=== PATIENT | female | born 1980 | race Native Hawaiian/Other Pacific Islander ===

== ENCOUNTER 2018-07-11 14:07 | Emergency (ER) | payer SELFPAY ==
[2018-07-11 15:20] LABS: Basophils % (Auto) 0.3 % (0.0-1.8); Eosinophils # (Auto) 0.3 K/mm3 (0.0-0.4); Eosinophils % (Auto) 2.5 % (0.0-4.3); Hematocrit 42.2 % (30.3-42.9); Hemoglobin 13.9 gm/dl (10.1-14.3); Lymphocytes # (Auto) 1.9 K/mm3 (1.2-5.4); Lymphocytes % (Auto) 17.9 % (13.4-35.0); Mean Corpuscular HGB Conc 33 % (30-34); Mean Corpuscular Hemoglobin 29 pg (28-32); Mean Corpuscular Volume 88 fl (79-97); Monocytes # (Auto) 0.7 K/mm3 (0.0-0.8); Monocytes % (Auto) 6.6 % (0.0-7.3); Platelet Count 315 K/mm3 (140-440); Red Blood Count 4.82 M/mm3 (3.65-5.03); Red Cell Distribution Width 14.5 % (13.2-15.2)
--- NOTE | 2018-07-11 16:11 | Emergency Department Report ---
HPI - General Chief Complaint: Vaginal Bleeding Time Seen by Provider: 07/11/18 16:03 - [facility] HPI: Room 5 The patient is a 37-year-old female presenting with a chief complaint of vaginal bleeding. The patient states she is approximately 6 weeks and yesterday began developing vaginal bleeding. Patient states she went through approximately 2 pads in one day however her bleeding had increased in the waiting room. The patient states today she developed intermittent lower abdominal cramping. Patient denies any history of fever. Location: Lower abdomen, pelvis Duration: Since yesterday Quality: Cramping Severity: Moderate Modifying factors: [see above] Context: [see above] Mode of transportation: [not driving] ED Past Medical Hx - Past Medical History Previous Medical History?: No - Surgical History Past Surgical History?: No Additional Surgical History: c sect x 2 - Family History Family history: no significant - Social History Smoking Status: Never Smoker Substance Use Type: None - Medications Home Medications: Home Medications Medication Instructions Recorded Confirmed Last Taken Type Ibuprofen [Motrin] 800 mg PO Q8HR PRN #30 tablet 07/11/18 Unknown Rx oxyCODONE /ACETAMINOPHEN [Percocet 1 tab PO Q6HR PRN #15 tablet 07/11/18 Unknown Rx 5/325] ED Review of Systems ROS: Stated complaint: BLEEDING 5 WEEKS/PAIN Other details as noted in HPI Constitutional: denies: fever Eyes: denies: eye pain ENT: denies: throat pain Respiratory: no symptoms reported Cardiovascular: denies: chest pain Endocrine: no symptoms reported Gastrointestinal: abdominal pain Genitourinary: abnormal menses Musculoskeletal: denies: back pain Neurological: denies: headache Physical Exam - Physical Exam Vital Signs: Vital Signs 07/11/18 14:30 Temperature 98.5 F Pulse Rate 81 Respiratory 18 Rate Blood Pressure 116/85 O2 Sat by Pulse 99 Oximetry Physical Exam: GENERAL: The patient is well-developed well-nourished female lying on stretcher not appearing to be in acute distress. [] HEENT: Normocephalic. Atraumatic. Extraocular motions are intact. Patient has moist mucous membranes. NECK: Supple. Trachea midline CHEST/LUNGS: Clear to auscultation. There is no respiratory distress noted. HEART/CARDIOVASCULAR: Regular. There is no tachycardia. There is no gallop rub or murmur. ABDOMEN: Abdomen is soft, with mild discomfort to palpation right lower quadrant. There is no rebound or guarding. Patient has normal bowel sounds. There is no abdominal distention. SKIN: There is no rash. There is no edema. There is no diaphoresis. NEURO: The patient is awake, alert, and oriented. The patient is cooperative. The patient has normal speech MUSCULOSKELETAL: There is no evidence of acute injury. PELVIC: Tissue visualized in the vaginal vault. Moderate amount of dark red blood present ED Course Vital Signs 07/11/18 14:30 Temperature 98.5 F Pulse Rate 81 Respiratory 18 Rate Blood Pressure 116/85 O2 Sat by Pulse 99 Oximetry - Consultations Consultation #1: 07/11/18 18:58 [employer] paged 07/11/18 19:[address] Hollis- will evaluate in the ED 07/11/18 20:[address] Hollis and has Cytotec ordered in the ED. Dr. Hollis is giving the patient prescriptions for Percocet and ibuprofen ED Medical Decision Making - Lab Data Result diagrams: 07/11/18 14:47 - Radiology Data Radiology results: report reviewed (pelvic ultrasound), image reviewed (pelvic ultrasound) Findings [facility] [address] [place] [address] Ultrasound Report Signed Patient: SHERYL MASTERS MR#: [id number] : Acct:[id number] Age/Sex: 37 / F ADM Date: 07/11/18 Loc: ED Attending Dr: Ordering Physician: MARTINE HAYES MD Date of Service: 07/11/18 Procedure(s): US OB transvaginal Accession Number(s): [id number] cc: MARTINE HAYES MD FINAL REPORT EXAM: US OB TRANSVAGINAL HISTORY: vaginal bleeding TECHNIQUE: Transvaginal grayscale and color-flow imaging of the pelvis was performed. Comparison: Transabdominal study also performed today FINDINGS: There is demonstration of a gestational sac-like structure in the vagina that measures approximately 1.8 centimeters x 0.9 centimeters x 1.4 centimeters. This contains small, approximately 1.2 millimeter, echogenic structure which may represent a pole. There is no demonstration of yolk sac and no demonstration of cardiac activity. There is increased thickness of the endometrium which is heterogeneous in appearance. Endometrial thickness in the fundus measures approximately 2 centimeters and endometrial thickness in the body measures approximately 1.5 centimeters. The right ovary measures 3 centimeters x 1.5 centimeters x 2 centimeters and contains an approximately 1.5 centimeter possible corpus luteum cyst. Flow is demonstrated in the right ovary utilizing color flow imaging. The left ovary is not visualized. A small amount of free fluid is demonstrated in the cul-de-sac. IMPRESSION: 1. Demonstration of a gestational sac-like structure in the vagina that contains a small echogenic structure which may represent a pole. There is no demonstration of a yolk sac and no demonstration of cardiac activity. 2. Increased thickness of the endometrium which is heterogeneous in appearance and may represent blood products. 3. Possible corpus luteal cyst right ovary. 4. The left ovary is not visualized. 5. Small amount of free fluid in the cul-de-sac. Transcribed By: ED Dictated By: EVELIO BARRIOS MD Electronically Authenticated By: EVELIO BARRIOS MD Signed Date/Time: 07/11/181720 DD/ 20 TD/TT: 07/11/181720 - Differential Diagnosis threatened , missed , spontaneous Critical care attestation.: If time is entered above; I have spent that time in minutes in the direct care of this critically ill patient, excluding procedure time. ED Disposition Clinical Impression: Incomplete Disposition: DC- TO HOME OR SELFCARE Is pt being admited?: No Does the pt Need Aspirin: No Condition: Stable Instructions: Spontaneous Miscarriage (ED) Additional Instructions: Return to the emergency department immediately should you develop worsening symptoms, fever, inability to tolerate food or liquid or any other concerns. Prescriptions: Ibuprofen [Motrin] 800 mg PO Q8HR PRN #30 tablet PRN Reason: Pain, Moderate (4-6) oxyCODONE /ACETAMINOPHEN [Percocet 5/325] 1 tab PO Q6HR PRN #15 tablet PRN Reason: Pain , Severe (7-10) Referrals: PRIMARY CARE, [Primary Care Provider] - 3-5 Days your, [employer] [Other] - 3-5 Days Time of Disposition: 20:49
--- NOTE | 2018-07-11 17:17 | Ultrasound Report ---
FINAL REPORT EXAM: US OB < = 14 WEEKS FETUS HISTORY: vaginal bleeding last menstrual period May 08, 2018. Estimated gestational age by dates is 9 weeks 1 day. TECHNIQUE: FINDINGS: The uterus measures 9.4 centimeters x 4.3 centimeters x 5.1 centimeters. Endometrial thickness measures 2 centimeters. The contents of the endometrium is heterogeneous in appearance. The ovaries are not well visualized on the transabdominal study. The urinary bladder is decompressed. There is no demonstration of an intrauterine gestational sac. IMPRESSION: 1. Increased thickness of the endometrium which is heterogeneous in appearance. 2. No demonstration of an intrauterine gestational sac. Please see report of transvaginal ultrasound also performed today.
--- NOTE | 2018-07-11 17:22 | Ultrasound Report ---
FINAL REPORT EXAM: US OB TRANSVAGINAL HISTORY: vaginal bleeding TECHNIQUE: Transvaginal grayscale and color-flow imaging of the pelvis was performed. Comparison: Transabdominal study also performed today FINDINGS: There is demonstration of a gestational sac-like structure in the vagina that measures approximately 1.8 centimeters x 0.9 centimeters x 1.4 centimeters. This contains small, approximately 1.2 millimeter, echogenic structure which may represent a pole. There is no demonstration of yolk sac and no demonstration of cardiac activity. There is increased thickness of the endometrium which is heterogeneous in appearance. Endometrial thickness in the fundus measures approximately 2 centimeters and endometrial thickness in the body measures approximately 1.5 centimeters. The right ovary measures 3 centimeters x 1.5 centimeters x 2 centimeters and contains an approximately 1.5 centimeter possible corpus luteum cyst. Flow is demonstrated in the right ovary utilizing color flow imaging. The left ovary is not visualized. A small amount of free fluid is demonstrated in the cul-de-sac. IMPRESSION: 1. Demonstration of a gestational sac-like structure in the vagina that contains a small echogenic structure which may represent a pole. There is no demonstration of a yolk sac and no demonstration of cardiac activity. 2. Increased thickness of the endometrium which is heterogeneous in appearance and may represent blood products. 3. Possible corpus luteal cyst right ovary. 4. The left ovary is not visualized. 5. Small amount of free fluid in the cul-de-sac.
--- NOTE | 2018-07-11 20:43 | Consultation ---
History of Present Illness Consult date: 07/11/18 Requesting physician: MARTINE HAYES Reason for consult: early problem History of present illness: She is a 37-year-old female 3 para 2002 LMP 05/08/2018 at 9 weeks 1 day by LMP who presents with a 2 day history of pelvic cramping and heavy vaginal bleeding with passage of tissue. Patient reports having care at [facility] with 2 ultrasounds, the most recent of which was 2 weeks ago where she was told that "everything was normal" and "the baby had a heartbeat". On ultrasound in the emergency department the patient has a 9.4 cm uterus with endometrial thickness of 2 cm that's heterogeneous. No demonstration of intrauterine gestational sac. The patient denies any strenuous physical activity or emotional upset over the past 2 days. Past History Past Medical History: no pertinent history Past Surgical History: section (x 2 ) Social history: no significant social history - Obstetrical History Expected Date of Delivery: 02/12/19 Actual Gestation: 9 Week(s) 1 Day(s) : 3 Para: 2 Hx # Term Pregnancies: 2 Number of Pregnancies: 0 Spontaneous Abortions: 0 Induced : 0 Number of Living Children: 2 Medications and Allergies Allergies Allergy/AdvReac Type Severity Reaction Status Date / Time No Known Allergies Allergy Unverified 07/11/18 14:30 Home Medications Medication Instructions Recorded Confirmed Last Taken Type Ibuprofen [Motrin] 800 mg PO Q8HR PRN #30 tablet 07/11/18 Unknown Rx oxyCODONE /ACETAMINOPHEN [Percocet 1 tab PO Q6HR PRN #15 tablet 07/11/18 Unknown Rx 5/325] Active Meds: Active Medications Misoprostol (Cytotec) 600 mcg PO ONCE ONE Stop: 07/11/18 20:43 Review of Systems All systems: negative - Vital Signs Vital signs: Vital Signs Temp Pulse Resp BP Pulse Ox 98.5 F 81 18 116/85 99 07/11/18 14:30 07/11/18 14:30 07/11/18 14:30 07/11/18 14:30 07/11/18 14:30 Temp Pulse Resp BP Pulse Ox 98.5 F 81 18 116/85 99 07/11/18 14:30 07/11/18 14:30 07/11/18 14:30 07/11/18 14:30 07/11/18 14:30 - Physical Exam Breasts: Positive: deferred Cardiovascular: Regular rate Lungs: Positive: Clear to auscultation Abdomen: Positive: soft. Negative: tenderness Genitourinary (Female): Positive: normal external genitalia Cervix: Positive: other (cervix is closed, small clot in vagina was removed with ring forceps) Extremities: Positive: normal Results Result Diagrams: 07/11/18 14:47 Abnormal lab results 07/11/18 07/11/18 Range/Units 14:47 14:47 Seg Neutrophils % 72.7 H (40.0-70.0) % Seg Neutrophils # 7.9 H (1.8-7.7) K/mm3 HCG, Quant 9753 H (0-4) mIU/mL All other labs normal. Assessment and Plan A: Spontaneous - cervix closed, no active bleeding P: Misoprostol 600 mcg orally Patient may be discharged home with follow up at scheduled appt this week () at [facility] If bleeding increases to one pad per hour, she may return to the Emergency Room Thank you for the consultation.
[2018-07-11 21:21] VITALS: BP 120/72
[2018-07-11] MEDS ORDERED: CYTOTEC PO ONE (21:42)
== END 2018-07-11 21:20 | disposition home or self-care (01) ==
LOC: ED 14:07
DX: O03.4 Incomplete spontaneous abortion without complication (principal); Z3A.01 Less than 8 weeks gestation of pregnancy
CPT/HCPCS: 36415; 76801; 76817; 84702; 85025; 86850; 86900; 86901; 99284